=== PATIENT | male | born 1975 | race Caucasian/White ===

== ENCOUNTER 2018-06-08 06:07 | Emergency (ER) | payer OTHER ==
[~2018-06-08 06:07] MED LIST: PERCOCET 5-3251 EACH PO; ZOFRAN ODT4 M1 SL
--- NOTE | 2018-06-08 06:25 | ED GENERAL ADULT ---
History of Present Illness General Chief Complaint: Eye Problems Stated Complaint: RT EYE PAIN PT HAND TUFTER ? FLASH BURN Source: patient, family Exam Limitations: no limitations Vital Signs & Intake/Output Vital Signs & Intake/Output Vital Signs Date Time Temp Pulse Resp B/P B/P Pulse O2 O2 Flow FiO2 Mean Ox Delivery Rate 06/08 0637 88 18 144/81 98 Room Air Allergies Coded Allergies: No Known Allergies (06/08/18) Reconcile Medications Moxifloxacin Hydrochloride (Vigamox) 0.5 % DROPS 1 GTT OPH TID FOREIGN BODY ONE DROP IN RIGHT EYE THREE TIMES A DAY FOR 7 DAYS Oxycodone HCl/Acetaminophen (Percocet 5-325 MG Tablet) 5 MG-325 MG TABLET 1 TAB PO BID PAIN Triage Nurses Notes Reviewed? yes HPI: 42-year-old man seen for evaluation of right eye pain and swelling. Patient reports that he was in his normal state of health up until Saturday midafternoon when he was "grinding metal" and felt something go into his right eye. He irrigated the eye and felt much better but yesterday it suddenly became worse with swelling and blurred vision and white spots on the "color part of his eye". He reports that this is happened one time before to "both eyes". Presently he admits that he is afraid of his blurred vision as this is new and admits to new photophobia. He otherwise denies any complaints. He denies any fever, chills, chest pain, shortness of breath, palpitations, nausea, vomiting. (Herminio Kim MD) Past History Medical History Any Pertinent Medical History? see below for history Neurological: NONE EENT: TONSILECTOMY Cardiovascular: NONE Respiratory: NONE Gastrointestinal: NONE Hepatic: NONE Renal: NONE Musculoskeletal: NONE Psychiatric: NONE Endocrine: NONE Blood Disorders: NONE Cancer(s): NONE OFFICE SERVICES ASSOCIATE/Reproductive: NONE Surgical History Surgical History: none Psychosocial History What is your primary language Malay Family History Hx Contributory? No (Herminio Kim MD) Review of Systems Review of Systems Constitutional: Reports: see HPI. (Herminio Kim MD) Physical Exam Physical Exam General Appearance: well developed/nourished, no apparent distress, alert, awake , comfortable Comments: General - well developed, well nourished middle-aged man in no acute distress HEENT - NCAT, PERRL, EOMI, erythematous/injected right sclera with obvious corneal abrasion and retained metal; fluorescein stain redemonstrates corneal abrasion Neck- Supple, no JVD/HJR, no bruits, trachea midline, thyroid normal Cardio - S1, S2 w/o murmurs/gallops/rubs; regular rate and rhythm Resp - Clear to auscultation bilaterally GI - Soft, nontender, nondistended, bowel sounds present Neuro - Awake and alert, CN II - XII grossly intact Extremities - No edema, pulses intact Core Measures ACS in differential dx? No CVA/TIA Diagnosis: No Sepsis Present: No Sepsis Focused Exam Completed? No (Herminio Kim MD) Progress Differential Diagnoses I considered the following diagnoses in my evaluation of the patient: Plan of Care: Current Medications Sig/Tori Start time Last Medication Dose Stop Time Status Admin Tetanus/Diphtheria 0.5 ML ONCE ONE 06/08 715 CAN Toxoids Adsorbed 06/08 716 (Decavac) Initial ED EKG: none Comments: Patient reports sensation of "something in his eye" since he was "grinding metal " on Saturday. His vision has progressively worsened now with associated eye discomfort and swelling. Vital signs remain within normal limits. Physical exam demonstrates a retained foreign body in his right eye. Fluorescein dye demonstrates no other abrasions. Slit lamp examination confirms presence of foreign body. Foreign body was removed manually. Patient is being discharged home with antibiotic eyedrops and pain medications with instruction to follow-up with ENT on Saturday. (Herminio Kim MD) Differential Diagnoses I considered the following diagnoses in my evaluation of the patient: [ Conjunctivitis, foreign body, corneal abrasion, flash welders keratitis] (Juan Carlos Marti DO) Departure Departure Disposition: HOME OR SELF CARE Condition: Stable Clinical Impression Primary Impression: Foreign body of right eye Referrals: Roxi Diane MD (PCP/Family) Additional Instructions: Take antibiotics as directed. Take pain medications as directed. Schedule an appointment with an ENT on Saturday morning. Return to the ED if your symptoms worsen. Departure Forms: Customer Survey General Discharge Information Prescriptions: Current Visit Scripts Oxycodone HCl/Acetaminophen (Percocet 5-325 MG Tablet) 1 TAB PO BID #10 TAB Moxifloxacin Hydrochloride (Vigamox) 1 GTT OPH TID #1 BOT ONE DROP IN RIGHT EYE THREE TIMES A DAY FOR 7 DAYS (Herminio Kim MD) Departure Comments I saw and personally examined the patient and I agree with Dr. Crenshaw's evaluation. 42-year-old male grinding metal, foreign body sensation on Saturday. Presented to the ED with foreign body sensation in right eye injection. Visual acuity was 20/70 in the affected eye. Physical examination showed a stone foreign body at the 3 o'clock position with a surrounding corneal abrasion. Procedure Tetracaine drops were instilled into the right eye The stone foreign body was removed by me under direct visualization with a piece of fluorescein paper Dr. Crenshaw was in the room The patient had a rust ring remaining with a corneal abrasion The patient was told that it was critical that he follow-up with the program therapist tomorrow, to use the Vigamox ophthalmic drops, Percocet for pain , and to return if worse. (Juan Carlos Marti DO) Procedures Eye Procedure Eye Procedure: Remaining Material Aft FB Bobby rust ring Irrigated w/ Norml Saline (mL) 0 Progress: FOREIGN BODY EXTRACTION WITH RESIDUAL RUST RING (Herminio Kim MD) Critical Care Note Critical Care Note Critical Care Time: non-applicable (Herminio Kim MD)
[2018-06-08 06:37] VITALS: BP 144/81
[2018-06-08] MEDS ORDERED: VIGAMOX3 ML OPH (07:11)
[2018-06-08] MEDS ORDERED: PERCOCET 5-3251 EACH PO (07:15)
== END 2018-06-08 07:15 ==
LOC: ERH 06:07
DX: T15.91XA Foreign body on external eye, part unspecified, right eye, initial encounter (principal)
CPT/HCPCS: 90714